=== PATIENT | male | born 1930 | race Caucasian/White ===

== ENCOUNTER 2017-10-29 08:07 | Emergency (ER) | payer MEDICARE ==
[2017-10-29 08:34] VITALS: BP 123/52
--- NOTE | 2017-10-29 08:48 | UC ---
Throat Pain/Nasal Jonathan HPI - HPI Summary HPI Summary: Sore throat, congestion and non productive cough for about three days. No fever , sob, diamond. He denies prior lung disease and he is a non smoker. It hurts more to swallow. - History of Current Complaint Chief Complaint: UCGeneralIllness Stated Complaint: SORE THROAT Time Seen by Provider: 10/29/17 08:35 Hx Obtained From: Patient, Family/Baseball Glove [employer]aper Onset/Duration: Gradual Onset, Lasting Days Severity: Moderate Pain Intensity: 8 Cough: Nonproductive Associated Signs & Symptoms: Positive: Dysphagia. Negative: Wheezing, Fever, Vomiting, Rash - Epiglottits Risk Factors Epiglottis Risk Factors: Muffled Voice - Allergies/Home Medications Allergies/Adverse Reactions: Allergies Allergy/AdvReac Type Severity Reaction Status Date / Time Tree Nuts Allergy Swelling Verified 10/29/17 08:27 Of Face,Lips,& Throat Home Medications: Home Medications SitaGLIPtin (NF) [Januvia (NF)] 100 mg PO DAILY 10/29/17 [History Confirmed 11/10] Vitamin THERAPEUTIC TAB* [Theragran TAB*] 1 tab PO DAILY 10/29/17 [History Confirmed 10/29/17] PMH/Surg Hx/FS Hx/Imm Hx Previously Healthy: No - prior atrial blood clots. 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 - Social History Lives: With Family Alcohol Use: None Substance Use Type: None Smoking Status (MU): Never Smoked Tobacco - Immunization History Most Recent Tetanus Shot: 02/14/15 Review of Systems ENT: Sore Throat, Sinus Congestion Respiratory: Cough All Other Systems Reviewed And Are Negative: Yes Physical Exam Triage Information Reviewed: Yes Appearance: Well-Appearing, No Pain Distress, Well-Nourished Vital Signs: Initial Vital Signs Temp 97.9 F 10/29/17 08:23 Pulse 76 10/29/17 08:23 Resp 16 10/29/17 08:23 BP 123/52 10/29/17 08:23 Pulse Ox 97 10/29/17 08:23 Vital Signs Reviewed: Yes Eyes: Positive: Conjunctiva Clear ENT: Positive: Normal ENT inspection, Pharyngeal erythema, Nasal congestion, TMs normal, Muffled voice, Uvula midline - Uvula long and inflammed. No asymmetry or signs of tonsillar abcess.. Negative: Nasal drainage, TM bulging, TM dull, TM red, Tonsillar swelling, Tonsillar exudate, Trismus, Hoarse voice, Sinus tenderness Neck: Positive: Supple, Nontender. Negative: No Lymphadenopathy Respiratory: Positive: Lungs clear, Normal breath sounds, No respiratory distress, No accessory muscle use. Negative: Respiratory distress, Decreased breath sounds, Accessory muscle use, Crackles Cardiovascular: Positive: No Murmur, Pulses Normal, Brisk Capillary Refill Abdomen Description: Positive: No Organomegaly, Soft. Negative: Distended, Guarding Musculoskeletal: Positive: Strength Intact, ROM Intact, No Edema Neurological: Positive: Alert, Muscle Tone Normal. Negative: Fatigued Psychological: Negative: Age Appropriate Behavior Skin: Positive: rashes Throat Pain/Nasal Course/Dx - Course Assessment/Plan: Non toxic with clinical signs of pneumonia by hx or exam. We will try decadron and recommended supportive care. - Differential Dx/Diagnosis Provider Diagnoses: uri. viral pharyngitis. Discharge - Sign-Out/Discharge Documenting (check all that apply): Discharge/Admit/Transfer - Discharge Plan Condition: Good Disposition: HOME Prescriptions: Dexamethasone TAB* [Decadron TAB*] 2 mg PO BID #6 tab Patient Education Materials: Upper Respiratory Infection (ED) Referrals: Jenn Frey MD [Primary Care Provider] - - Billing Disposition and Condition Condition: GOOD Disposition: Home
[2017-10-29] MEDS ORDERED: Acetaminophen TAB* 325 MG PO ONE (09:06)
== END 2017-10-29 09:09 | disposition home or self-care (01) ==
LOC: UCCORT 08:07
DX: J06.9 Acute upper respiratory infection, unspecified (principal); J02.8 Acute pharyngitis due to other specified organisms
CPT/HCPCS: 87651; 99212; A9270-GY; G0463

== ENCOUNTER 2017-11-02 13:35 | Emergency (ER) | payer MEDICARE ==
[2017-11-02 14:08] VITALS: BP 123/57
--- NOTE | 2017-11-02 16:09 | UC ---
Laceration HPI - HPI Summary HPI Summary: Patient tripped and fell in his bedroom 2 days ago. Received a skin tear to his left wrist. Patient tripped and fell in his bedroom 2 days ago. Has a skin tear to his left wrist. Patient reports a skin tear continues to ooze blood and will bleed when it is bumped up a can something. Patient's INR has been checked within the last month it was as expected between 2.5 and 3 he's not sure the exact number. He has been on no recent antibiotics has been taking his medications as ordered does not have any other bleeding petechiae or bruising. - History Of Current Complaint Chief Complaint: UCLaceration Stated Complaint: LEFT WRIST LACERATION Time Seen by Provider: 11/02/17 15:59 Hx Obtained From: Patient Laceration Location: Arm - left wrist Mechanism Of Injury: Blunt Trauma Onset/Duration: Sudden Onset, Lasting Days - 2 days ago Pain Intensity: 0 Pain Scale Used: 0-10 Numeric Aggravating Factors: Nothing Related History: Dominant Hand Right - Allergies/Home Medications Allergies/Adverse Reactions: Allergies Allergy/AdvReac Type Severity Reaction Status Date / Time Tree Nuts Allergy Swelling Verified 11/02/17 14:04 Of Face,Lips,& Throat PMH/Surg Hx/FS Hx/Imm Hx Previously Healthy: No Endocrine History: Diabetes, Dyslipidemia Cardiovascular History: Other - mitral valve repair Other Cardiovascular History: mitral valve repair GI/ History: Gastroesophageal Reflux - Surgical History Surgical History: Yes Surgery Procedure, Year, and Place: 1998 MITRAL VALVE REPAIR, 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 - Social History Occupation: Retired Lives: Alone Alcohol Use: Daily Alcohol Amount: 1 glass wine Substance Use Type: None Smoking Status (MU): Never Smoked Tobacco - Immunization History Most Recent Tetanus Shot: 02/14/15 Review of Systems Constitutional: Negative Skin: Negative, Other - irregular shaped skin tears approx 15 cm total length-- poorly approximated but firmly seated on dermis Eyes: Negative ENT: Negative Respiratory: Negative Cardiovascular: Negative Gastrointestinal: Negative Genitourinary: Negative Motor: Negative Neurovascular: Negative Musculoskeletal: Negative Neurological: Negative Psychological: Negative Is Patient Immunocompromised?: No All Other Systems Reviewed And Are Negative: Yes Physical Exam Triage Information Reviewed: Yes Appearance: Well-Appearing, No Pain Distress, Well-Nourished Vital Signs: Initial Vital Signs Temp 99 F 11/02/17 13:56 Pulse 78 11/02/17 13:56 Resp 25 11/02/17 13:56 BP 123/57 11/02/17 13:56 Pulse Ox 96 11/02/17 13:56 Vital Signs Reviewed: Yes Eye Exam: Normal Eyes: Positive: Conjunctiva Clear ENT Exam: Normal ENT: Positive: Normal ENT inspection, Hearing grossly normal. Negative: Trismus , Muffled voice, Hoarse voice Dental Exam: Normal Neck exam: Normal Neck: Positive: Supple, Nontender Respiratory Exam: Normal Respiratory: Positive: Chest non-tender, Lungs clear, No accessory muscle use Cardiovascular Exam: Normal Cardiovascular: Positive: RRR, Pulses Normal, Brisk Capillary Refill Musculoskeletal Exam: Normal Musculoskeletal: Positive: Strength Intact, ROM Intact, No Edema Neurological Exam: Normal Neurological: Positive: Alert, Muscle Tone Normal Psychological Exam: Normal Skin Exam: Other Skin: Positive: Other - skin tear on left wrist as described Laceration Course/Dx - Course/Dx Course Of Treatment: vaseline gauze then 4x4 then loose tika wrap----wounds have not bleed here. dressing supplies provided--- - Differential Dx - Laceration/Wound Provider Diagnoses: 15 cm skin tear left wrist-- Discharge - Sign-Out/Discharge Documenting (check all that apply): Discharge/Admit/Transfer - Discharge Plan Condition: Stable Disposition: HOME Patient Education Materials: Skin Tear (ED) Referrals: Jenn Frey MD [Primary Care Provider] - If Needed Additional Instructions: Daily dressing changes----wash very gently with mild soap and water---do not disturb scab apply 1/2 piece a vaseline gauze cover with telfa wrap with tika wrap - Billing Disposition and Condition Condition: STABLE Disposition: Home
== END 2017-11-02 16:27 | disposition home or self-care (01) ==
LOC: UCCORT 13:35
DX: S61.512A Laceration without foreign body of left wrist, initial encounter (principal); E11.9 Type 2 diabetes mellitus without complications; Z91.018 Allergy to other foods; W01.0XXA Fall on same level from slipping, tripping and stumbling without subsequent striking against object, initial encounter; Y92.9 Unspecified place or not applicable
CPT/HCPCS: 99212; G0463

== ENCOUNTER 2018-02-03 08:47 | Day surgery (SDC) | payer MEDICARE ==
[~2018-02-03 08:47] MED LIST: Buffered Lidocaine 0.9% SYRIN* 5 ML/SYR SYRINGE INTRADERM ONE
[2018-02-03] MEDS ORDERED: Lidocaine 2.5%/Prilocain 2.5%* 5 GM TUBE ONE (08:54)
[2018-02-03] MEDS ORDERED: fentaNYL* 50 MCG/ML 2 ML VIAL (100 MCG VIAL) ONE (11:19)
[2018-02-03] MEDS ORDERED: Midazolam* 1 MG/ML 2 ML VIAL (2 MG) ONE (11:19)
--- NOTE | 2018-02-03 11:34 | RAD ---
INDICATION: Right lower leg melanoma. Comparison: There are no relevant prior studies available for comparison. Technique: The benefits and risks of the procedure were explained to the patient. The patient consented to the exam. A timeout was performed before beginning the procedure. 0.32 mCi of technetium 99m filtered sulfur colloid were injected adjacent to a postbiopsy melanoma scar at the level of the right ankle. Four intradermal injections were made. The patient tolerated the procedure well without incident. Multiple images of the right knee and hips were obtained. FINDINGS: There was a single sentinel node present in the right inguinal region. This was marked and localized on the patient's skin. IMPRESSION: THERE IS A SINGLE SENTINEL NODE IN THE RIGHT INGUINAL REGION WHICH WAS MARKED ON THE PATIENT'S SKIN.
[2018-02-03] MEDS ORDERED: Lidocain 1% EPI 1:100,000 * 30 ML MDV ONE (12:25)
[2018-02-03] MEDS ORDERED: ceFAZolin 2 GM in NS PREMIX(*) 2 GM/100 ML BAG IVPB ONE (12:43)
[2018-02-03] MEDS ORDERED: Bupivacaine 0.25% SDV PF* 10 ML VIAL INJ ONE (12:43)
[2018-02-03] MEDS ORDERED: Ondansetron INJ* 2 MG/ML VIAL IV PRN (13:10)
[2018-02-03] MEDS ORDERED: Naloxone* 0.4 MG/ML 1 ML VIAL IV PRN (13:10)
[2018-02-03] MEDS ORDERED: Propofol* 10 MG/ML 20 ML BTL IV PUSH ONE (13:14)
[2018-02-03 15:52] VITALS: BP 146/80
== END 2018-02-03 15:55 | disposition home or self-care (01) ==
LOC: OR 08:47
PROVIDERS: ATTEND Plastic Surgery
DX: C43.71 Malignant melanoma of right lower limb, including hip (principal); Z86.73 Personal history of transient ischemic attack (TIA), and cerebral infarction without residual deficits; Z79.01 Long term (current) use of anticoagulants; I10 Essential (primary) hypertension; Z86.718 Personal history of other venous thrombosis and embolism; K21.9 Gastro-esophageal reflux disease without esophagitis
CPT/HCPCS: 78195; 88307; 88341; 88342; A9270-GY; A9541; C1776; J0690; J2250; J2704; J3010; J3490

== ENCOUNTER 2018-03-19 13:04 | Day surgery (SDC) | payer MEDICARE ==
[2018-03-19] MEDS ORDERED: ceFAZolin 2 GM PREMIX in ORs 2 GM/50 ML BAG IVPB ONE (13:11)
[2018-03-19] MEDS ORDERED: fentaNYL* 50 MCG/ML 2 ML VIAL (100 MCG VIAL) ONE (13:52)
[2018-03-19] MEDS ORDERED: Propofol* 10 MG/ML 20 ML BTL IV PUSH ONE (13:56)
[2018-03-19] MEDS ORDERED: Lidocain 1% EPI 1:100,000 * 30 ML MDV ONE (14:32)
[2018-03-19] MEDS ORDERED: Methylene Blue 0.5 %* 50 MG/10 ML AMP IV ONE (14:32)
[2018-03-19] MEDS ORDERED: Bupivacaine 0.25% W/EPI* 10 ML SDV ONE (14:32)
[2018-03-19] MEDS ORDERED: Mineral Oil Sterile, TOPICAL* 25 ML BTL ONE (14:33)
[2018-03-19] MEDS ORDERED: Bupivacaine 0.25% SDV* 30 ML ONE (14:44)
[2018-03-19] MEDS ORDERED: oxyCODONE/Acetamin 5/325 MG* TAB PO PRN (15:45)
[2018-03-19] MEDS ORDERED: Ondansetron INJ* 2 MG/ML VIAL IV PRN (15:45)
[2018-03-19] MEDS ORDERED: Ibuprofen TAB* 600 MG PO PRN (15:45)
[2018-03-19] MEDS ORDERED: Naloxone* 0.4 MG/ML 1 ML VIAL IV PRN (15:45)
[2018-03-19] MEDS ORDERED: fentaNYL* 50 MCG/ML 2 ML VIAL (100 MCG VIAL) IV PRN (15:45)
[2018-03-19] MEDS ORDERED: DiMENhydriNATE IV* 50 MG/ML VIAL IV PUSH PRN (15:45)
[2018-03-19] MEDS ORDERED: Acetaminophen TAB* 325 MG PO PRN (15:45)
[2018-03-19 16:49] VITALS: BP 133/81
--- NOTE | 2018-03-20 11:12 | OP ---
CC: Dr. Melvin Reilly; Samantha Lind MD; Gabriele Cuevas MD * DATE OF OPERATION: 03/19/18 - [facility] DATE OF : [birth year] SURGEON: Heron Monae MD. SCREEN MAKING SUPERVISOR: Marilyn Mahmood. ANESTHESIOLOGIST: Dr. Robledo. ANESTHESIA: Local MAC. PRE-OP DIAGNOSIS: Satellite metastasis melanoma, right leg. POST-OP DIAGNOSIS: Satellite metastasis melanoma, right leg. OPERATIVE PROCEDURE: Wider excision satellite metastasis melanoma, right leg. Debridement of nonhealing wound, right leg. Application of split-thickness skin graft of wound right leg, 8.8 x 5.0 cm, and application of VAC dressing. ESTIMATED BLOOD LOSS: Minimal. SPECIMENS: Wider excision satellite metastasis right leg, suture anderson true 6 o ' clock margin. DRAINS: None. COMPLICATIONS: None. INDICATION FOR OPERATION: The patient is an 87-year-old white male who is status post punch biopsy of a lesion of the right leg performed in Dr. Lind's office on 01/05/18. The pathology report read melanoma, Breslow thickness 1.75 mm. I performed a wide excision of the melanoma and reconstruction with a split-thickness skin graft on 02/03/18. Pathology from that procedure showed that the 6 o' clock distal tip was positive for a satellite metastasis. All other margins were widely clear. [place] node biopsy was negative. The skin graft sloughed postoperatively and he now has a nonhealing wound on the leg, which has been treated with Silvadene dressings and now has scattered areas of granulation. DESCRIPTION OF PROCEDURE: The patient was brought to the operating room, placed on the operating table in supine position. The patient was given intravenous sedation by Dr. Robledo. Right lower extremity was prepped with Betadine solution, draped sterilely. Planned area for surgical excision was marked with surgical marking pen taking an additional 1.2 cm gross margin around the 5 to 7 o' clock area of the wound. There was no grossly visible melanoma noted. The wound was irrigated with 1 L of saline using pulsatile jet lavage. The wound was then debrided removing scattered areas of fibrinous exudate down to bleeding tissue and also removing some areas of prominent granulation tissue which were smoothed down in preparation for skin grafting. Prior to doing this, a local field block around the wound and the area of planned wider excision was infiltrated with 0.0625% Marcaine, 0.25% lidocaine with epinephrine 1:400,000 solution. Next, the wider excision was performed excising full-thickness skin and subcutaneous tissue. The specimen was marked at the true 6 o' clock position and was sent in formalin for routine pathologic study. Hemostasis was obtained with fine point bipolar electrocautery. Wound was temporarily packed with a saline-moist gauze. Final dimensions of the wound following the wider excision were 8.8 x 5.0 cm. After local infiltration, split-thickness skin graft was harvested from the right anterior thigh using ITC gas-powered dermatomes set at a depth of 12 thousandths of an inch. An excellent quality graft was obtained. The graft was meshed in 1.5:1 ratio. Graft was then trimmed appropriately and inset into the right leg wound with running sutures of 4-0 Vicryl Rapide. Skin graft recipient site was then dressed with Adaptic and then a black foam VAC dressing applied in the usual fashion and the outpatient VAC pump attached and set to 125 mmHg suction. The leg was then dressed with Webril and then an Orthoglass posterior short-leg splint applied and secured with Coban wrap. The skin graft donor site was dressed with Tegaderm, ABD's and paper tape. The patient tolerated the procedure well. There were no complications. All counts were reported as correct. At the end of the procedure, patient was taken to the recovery area in stable postoperative condition. [id number]/CPS #: [id number] MTDD
== END 2018-03-19 17:32 | disposition home or self-care (01) ==
LOC: OR 13:04
PROVIDERS: ATTEND Plastic Surgery
DX: C43.71 Malignant melanoma of right lower limb, including hip (principal); Z86.73 Personal history of transient ischemic attack (TIA), and cerebral infarction without residual deficits; Z79.01 Long term (current) use of anticoagulants; F41.8 Other specified anxiety disorders; K21.9 Gastro-esophageal reflux disease without esophagitis; E78.5 Hyperlipidemia, unspecified
CPT/HCPCS: 88305; A9270-GY; J0690; J2704; J3010